=== PATIENT | female | born 1980 | race Caucasian/White ===

== ENCOUNTER → 2023-08-23 08:27 | Outpatient (CLI) | payer OTHER, SELFPAY ==
--- NOTE | 2023-08-23 | DI.CT.S_ITS ---
PROCEDURE: CT ABDOMEN PELVIS W CON INDICATIONS: Left upper quadrant pain TECHNIQUE: After the administration of intravenous contrast, axial sections acquired from the lung bases to the pubic symphysis. Coronal and sagittal reformats were performed. For radiation dose reduction, the following was used: automated exposure control, adjustment of mA and/or kV according to patient size. COMPARISON: None. FINDINGS: Image quality: Diagnostic. Lower Chest: No significant findings. ABDOMEN: Liver: No solid mass. Gallbladder: No radiopaque gallstones or wall thickening. Biliary ducts: No biliary dilation. Pancreas: No ductal dilation. No peripancreatic fluid collection. Spleen: Size is within normal limits. Adrenal Glands: No adrenal nodules. Kidneys and Ureters: No hydronephrosis. Left kidney inferior pole nonobstructing calculus measuring 0.8 cm. No solid mass. No complex renal cystic lesion which requires follow up. Stomach and Bowel: Diverticulosis. Thickening and stranding about the descending colon, (3/32). Hypodensity within the colonic wall measuring approximately 2.7 cm in length which could represent intramural abscess or phlegmon. There is a small collection of fluid at the inferior lateral aspect measuring 2.8 x 1.4 x 1.3 cm, estimated volume of 3 cc. Small calcification or clip at the medial aspect. No extraluminal gas. Normal appendix. No small bowel obstruction. Stomach is within normal limits. Peritoneum: Nodular thickening at the right peritoneum measuring 1.5 cm, (3/). No ascites. No pneumoperitoneum. Ventral Wall: No significant ventral hernia. Abdominal Nodes: No retroperitoneal or mesenteric adenopathy by size criteria. Vessels: Aorta and inferior vena cava are normal in size. PELVIS: Pelvic Organs: Anteverted uterus. Bladder: No stone. Pelvic Nodes: No enlarged lymph nodes. Miscellaneous: No inguinal hernias are seen. Bones: No aggressive osseous abnormality. IMPRESSION: 1. Findings most consistent with descending colon diverticulitis. Concern for developing intramural abscess or phlegmon measuring 2.7 cm. Small collection at the inferior aspect measuring 2.7 cm; approximately 3 cc. This could represent a small abscess or phlegmon. Recommend follow-up colonoscopy to exclude underlying malignancy if not recently performed. 2. Right peritoneal nodular thickening measuring 1.5 cm. Indeterminate. No ascites. No pneumoperitoneum. 3. No adenopathy. Recommend comparison with prior imaging if available. Dictated by: Gonzalez Carlson M.D. on 08/23/2023 at 10:28 Approved by: Gonzalez Carlson M.D. on 08/23/2023 at 10:44
== END ==
LOC: CT 08:29
PROVIDERS: Referring Provider Nurse Practitioner Family; Visit Provider Nurse Practitioner Family
DX: K57.90 Diverticulosis of intestine, part unspecified, without perforation or abscess without bleeding (principal); N20.0 Calculus of kidney; R10.12 Left upper quadrant pain
CPT/HCPCS: 74177; Q9967

== ENCOUNTER 2024-06-10 17:57 | Emergency (ER) | payer OTHER, SELFPAY ==
[2024-06-10 18:19] VITALS: BP 176/94; PULSE 93; RESP 18; TEMP 37.1; O2SAT 98; BMI 27.4
[2024-06-10 19:03] LABS: Add Manual Diff / Slide Review NO; Basophils Absolute Auto 0 /uL (0-100); Basophils Percent Auto 0.5 % (0-2); Eosinophils Absolute Auto 1000 /uL (0-450); Eosinophils Percent Auto 12.5 % (2-4); Hematocrit 38.6 % (36-46); Hemoglobin 13.2 g/dL (12.0-16.0); Lymphocytes Absolute Auto 2000 /uL (1100-4500); Lymphocytes Percent Auto 24.5 % (25-40); Mean Corpuscular HGB Conc 34.1 % (30-36); Mean Corpuscular Hemoglobin 31.6 PG (26-34); Mean Corpuscular Volume 92.7 fL (80-100); Monocytes Absolute Auto 800 /uL (0-900); Monocytes Percent Auto 10.4 % (3-14); Neutrophils Absolute Auto 4200 /uL (1500-7000); Neutrophils Percent Auto 52.1 % (50-75); Platelet Count 319 X10^3/uL (150-400); Red Blood Cell Count 4.16 X10^6/uL (4.0-5.2); Red Cell Distribution Width 12.8 % (11.6-14.8); White Blood Cell Count 8.1 X10^3/uL (4.5-11.0)
[2024-06-10 19:11] LABS: Bacteria Urine None Seen; Culture Indicated Urine Cult Not Indicated; RBC Urine None Seen (0-5/HPF); Squamous Epithelial Cell Urine 0-1 /HPF (0-5/HPF); Urine Volume 10mL (spun); WBC Urine None Seen (0-5/HPF)
[2024-06-10 19:25] LABS: Alanine Aminotransferase 45 IU/L (<35); Albumin 4.2 g/dL (3.5-5.0); Albumin Globulin Ratio 1.5 (1.0-2.8); Alkaline Phosphatase 73 U/L (38-126); Aspartate Aminotransferase 60 IU/L (14-36); BUN Creatinine Ratio 14.1 (6-22); Bilirubin Total 0.4 mg/dL (0.2-1.3); Blood Urea Nitrogen 11 mg/dL (7-17); Carbon Dioxide 22 mmol/L (22-32); Chloride 106 mmol/L (98-107); Estimated Glomerular Filt Rate > 60 mL/min (>60); Globulin 2.8 g/dL (1.7-4.1); Glucose 130 mg/dL (70-100); HEMOLYSIS 15 (0-50); Lipase 105 U/L (23-300); Potassium 3.8 mmol/L (3.4-5.1); Sodium 137 mmol/L (137-145)
[2024-06-10 20:18] VITALS: BP 163/93; PULSE 78; RESP 17; O2SAT 98
[2024-06-10 22:05] VITALS: PULSE 88; O2SAT 95
[2024-06-10 22:30] VITALS: PULSE 85; O2SAT 97
[2024-06-10 23:00] VITALS: PULSE 90; O2SAT 97
[2024-06-10] MEDS: HYDROMORPHONE 1 MG INJ IV (23:44)
--- NOTE | 2024-06-10 23:57 | ED.ABDPAIN ---
HPI - Abdominal Pain General Chief Complaint: Abdominal Pain Stated Complaint: pain in left side, has cancer no active treatments Time Seen by Provider: 06/10/24 23:39 History of Present Illness HPI narrative: 43-year-old female past medical history of stage IV colon cancer status post vasectomy comes into the ED from home for evaluation of abdominal pain. States it is to the left side of her abdomen, states it has been ongoing persistent for the past 3-4 weeks, states that she is in the process of going to a new oncologist at [facility] states that the appointment is in the next 2 weeks. She states that she has been trying to take Tylenol Motrin without any relief, she states that she is here only for pain control. Patient denies any other symptoms such as headache visual disturbances chest pain shortness of breath fever chills nausea vomiting or any other GI/ symptoms at this time. Related Data Previous Rx's Medication Instructions Recorded hydromorphone 2 mg tablet 2 mg PO Q6H PRN pain 5 days #20 06/11/24 tabs Allergies Allergy/AdvReac Type Severity Reaction Status Date / Time No Known Drug Allergies Allergy Verified 06/10/24 18:19 Review of Systems Review of Systems Narrative: General: Denies fever, chills, weight loss HEENT: Denies headache, eye drainage, eye irritation, head trauma, sore throat, voice change Cardiovascular: Denies any chest pain, palpitations, shortness of breath, tachycardia Respiratory: Denies any shortness of breath, cough, wheeze, stridor GI/: Positive abdominal pain, denies nausea, vomiting, diarrhea, bright red blood per rectum, melanotic stools, urinary frequency, urinary retention, dysuria, hematuria MSK: Denies any joint pain, muscle pains, swelling Skin: Denies any rashes, lesions, discoloration Neuro: Denies any headache, lightheadedness, dizziness, fainting, weakness Psych: Denies SI/HI Patient History Social History Smoking Status: Never smoker Smoking Status: Never smoker Exam Narrative Exam Narrative: General: Cooperative, comfortable, well-developed, not in acute distress HEENT: Normocephalic, atraumatic, PERRLA, normal sclera, eyelids normal, Neck: Active full range of motion, atraumatic Chest: Normal to inspection, negative crepitus, no overlying erythema ecchymosis Respiratory: Normal respiratory effort, not in acute respiratory distress, clear to auscultation bilaterally negative cough, wheeze, tachypnea, rhonchi, rales Cardiology: Regular rate rhythm negative gallop, murmur, rubs GI/: Normal to inspection, soft, nonrigid, no tenderness to palpation, exam deferred MSK: Full range of active range of motion of all 4 extremities, atraumatic Skin: No rashes lesions noted Neuro: Alert awake oriented x3, moves all 4 extremities spontaneously, cranial nerves intact, able to answer all questions appropriately follows commands appropriately Psych: Cooperative, negative suicidal or homicidal ideations Initial Vital Signs Initial Vital Signs: Vital Signs Temperature 98.8 F 06/10/24 18:19 Pulse Rate 93 H 06/10/24 18:19 Respiratory Rate 18 06/10/24 18:19 Blood Pressure 176/94 H 06/10/24 18:19 Pulse Oximetry 98 06/10/24 18:19 Oxygen Delivery Method Room Air 06/10/24 18:19 Course Orders Ordered: ED Orders 06/10/24 18:49 Complete Blood Count AUTO DIFF Stat Comprehensive Metabolic Panel Stat Lipase Stat Urine Microscopic Stat Ondansetron HCl (Ondansetron 4 Mg/2 Ml Inj) 4 mg IV NOW PRN PRN Reason: Nausea And Vomiting Ondansetron HCl (Ondansetron 4 Mg Odt) 4 mg PO NOW PRN PRN Reason: Nausea And Vomiting Discontinued Medications Hydromorphone HCl (Hydromorphone 1 Mg Inj) 1 mg IV NOW ONE Stop: 06/10/24 23:40 Last Admin: 06/10/24 23:44 Dose: 1 mg Documented By: DARRIAN Vital Signs Vital signs: Vital Signs - 8 hr 06/10/24 18:19 06/10/24 20:18 06/10/24 22:05 Temperature 98.8 F Pulse Rate 93 H 78 88 Respiratory Rate 18 17 Blood Pressure 176/94 H 163/93 H Pulse Oximetry 98 98 95 Oxygen Delivery Method Room Air Room Air 06/10/24 22:30 Temperature Pulse Rate 85 Respiratory Rate Blood Pressure Pulse Oximetry 97 Oxygen Delivery Method Room Air MDM - Abdominal Pain Differential Diagnosis Differential diagnosis: Likely calculus of kidney and other (Electrolyte abnormality) Lab Data 06/10/24 18:49 06/10/24 18:49 Labs: Lab Results 06/10/24 Range/Units 18:49 WBC 8.1 (4.5-11.0) X10^3/uL RBC 4.16 (4.0-5.2) X10^6/uL Hgb 13.2 (12.0-16.0) g/dL Hct 38.6 (36-46) % MCV 92.7 (80-100) fL MCH 31.6 (26-34) PG MCHC 34.1 (30-36) % RDW 12.8 (11.6-14.8) % Plt Count 319 (150-400) X10^3/uL Neut % (Auto) 52.1 (50-75) % Lymph % (Auto) 24.5 L (25-40) % [place] % (Auto) 10.4 (3-14) % Eos % (Auto) 12.5 H (2-4) % Baso % (Auto) 0.5 (0-2) % Neut # (Auto) 4200 (4575-3506) /uL Lymph # (Auto) 2000 (0970-4092) /uL [place] # (Auto) 800 (0-900) /uL Eos # (Auto) 1000 H (0-450) /uL Baso # (Auto) 0 (0-100) /uL Sodium 137 (137-145) mmol/L Potassium 3.8 (3.4-5.1) mmol/L Chloride 106 (98-107) mmol/L Carbon Dioxide 22 (22-32) mmol/L BUN 11 (7-17) mg/dL Creatinine 0.78 (0.52-1.04) mg/dL Estimated GFR > 60 (>60) mL/min BUN/Creatinine Ratio 14.1 (6-22) Glucose 130 H (70-100) mg/dL Calcium 9.0 (8.4-10.2) mg/dL Total Bilirubin 0.4 (0.2-1.3) mg/dL AST 60 H (14-36) IU/L ALT 45 H (<35) IU/L Alkaline Phosphatase 73 (38-126) U/L Total Protein 7.0 (6.3-8.2) g/dL Albumin 4.2 (3.5-5.0) g/dL Globulin 2.8 (1.7-4.1) g/dL Albumin/Globulin Ratio 1.5 (1.0-2.8) Lipase 105 (23-300) U/L Urine RBC None seen (0-5/HPF) Urine WBC None seen (0-5/HPF) Ur Squamous Epith Cells 0-1 /hpf (0-5/HPF) Urine Bacteria None seen (None) Ur Culture Indicated? Cult not indicated Vol Urine Centrifuged 10ml (spun) Point of care testing: Urine Dip Bedside Urine Glucose Negative Bedside Urine Bilirubin - Negative Bedside Urine Ketone - Negative Urine Specific [place] 1.020 Bedside Urine Occult Blood +/- Bedside Urine pH 6.0 Bedside Urine Protein - Negative Bedside Urine Urobilinogen - Negative Bedside Urine Nitrite - Negative Bedside Urine Leukocytes - Negative Esterase MDM Narrative Medical decision making narrative: 43-year-old female with a history of stage IV colon cancer status post resection comes into the ED for evaluation of left-sided abdominal pain ongoing persistent for past 3-4 weeks. States that she has not been able to get into her new oncologist at [facility] until the next 2 weeks, states that the pain has persisted and decided come into the ED for pain management. She states that she does have a appointment to get a PET scan in the next 2 weeks states that she is only here for pain management would like to defer CT scan at this time. Patient received IV 1 mg Dilaudid with resolution of her symptoms. Patient had lab performed here without any leukocytosis Chem panel normal, urinalysis without any signs of hematuria or acute urinary tract infection. Patient will be sent home with analgesics and instructed follow up with her PCP and oncologist. Strict return precautions were given she verbalized understanding of this and agrees to being discharged home with outpatient follow up Discharge Plan Departure Patient Disposition: Home Clinical Impression: Abdominal pain Activity Restrictions/Additional Instructions: Please follow up with her primary care doctor and your oncologist for your scheduled appointments Please read the discharge instructions sheet carefully and bring all papers to all doctor follow-up visits, as it may contain information that your doctor may want to see. Disease processes change and evolve, if your symptoms worsen or if you develop any new symptoms that are concerning to you please return for evaluation. Your evaluation today does not show any evidence of any life-threatening/serious illnesses requiring admission to the hospital or surgery. Please follow-up with your doctor for re-evaluation in approximately 1 day. Seek immediate medical attention for any worrisome symptoms. *If you do not have a primary care provider please contact the [facility] Resource line at [phone]. They will ask some questions about your medical history and help get you set up with a doctor in the community. Prescriptions: New hydromorphone 2 mg tablet 2 mg PO Q6H PRN (Reason: pain) 5 Days Qty: 20 0RF Stand Alone Forms: Patient Portal/API/Survey
[2024-06-11] MEDS: OXYCODONE/APAP 5/325 PREPACK 1 BOTTLE MISC (00:28)
[2024-06-11 00:34] VITALS: O2SAT 97
[2024-06-11 00:36] VITALS: BP 160/86; PULSE 77; RESP 16; O2SAT 97
== END 2024-06-11 00:43 | disposition home or self-care (01) ==
PROVIDERS: Emergency Provider Student in an Organized Health Care Education/Training Program
DX: R10.9 Unspecified abdominal pain (principal); Z85.038 Personal history of other malignant neoplasm of large intestine; Z90.49 Acquired absence of other specified parts of digestive tract
CPT/HCPCS: 80053; 81003; 81015; 83690; 85025; 96374; 99283; 99284; J1171